=== PATIENT | male | born 1960 | race Two or more races ===

== ENCOUNTER 2023-01-03 23:31 | Emergency (ER) | payer OTHER ==
[~2023-01-03] VITALS: Ht 157.5 cm; Wt 58.1 kg
[2023-01-03] MEDS ORDERED: TAMS0.4C (23:38)
[2023-01-03] MEDS ORDERED: LIPITOR40 M1 (23:38)
[2023-01-03] MEDS ORDERED: CARAFATE1 GM (23:38)
[2023-01-03] MEDS ORDERED: TRAMADOL HCL E100 M1 (23:39)
[2023-01-04 02:19] LABS: PH,URINE 6.5 (5.0-8.0); URINE APPEARANCE Clear; URINE BILIRRUBIN Negative (NEGATIVE); URINE BLOOD Negative; URINE COLOR Yellow; URINE GLUCOSE Negative (NEGATIVE); URINE LEUKOCYTE Negative; URINE NITRATE Negative; URINE PROTEIN Negative (NEGATIVE); URINE UROBILINOGEN 0.2 E.U./dl
[2023-01-04 02:23] LABS: URINE BACTERIA 7.5 uL (0.0-1933); URINE RBC 2.1 uL (0.0-20.8)
[2023-01-04 02:28] LABS: URINE EPITHELIAL CELLS 0.9 uL (0.0-38.8); URINE WBC 1.2 uL (0.0-23.2)
[2023-01-04 02:28] LABS: HEMOGLOBIN 13.3 g/dL (13-16.00); MEAN CELL VOLUME 88.8 fL (80.0-100.00); MEAN CORPUSCULAR HGB CONC 34.9 g/dl (32.0-36.0); PLATELET COUNT 173 K/uL (150-450); RED BLOOD COUNT 4.27 M/uL (4.00-6.00); RED CELL DISTRIBUTION WIDTH 14.4 % (11.5-14.5)
[2023-01-04 02:40] LABS: CALCIUM 8.9 mg/dL (8.5-10.1); CREATININE SERUM 0.86 mg/dL (0.70-1.30); GFR 90.4; POTASSIUM 4.43 mEq/L (3.5-5.1)
[2023-01-04] MEDS ORDERED: KETO10TA2 PO (06:50)
[2023-01-04] MEDS ORDERED: CIPRO500 MG PO (06:50)
== END 2023-01-04 07:05 ==
LOC: ER 23:32
PROVIDERS: General Practice
DX: R10.9 Unspecified abdominal pain (principal); Z87.442 Personal history of urinary calculi; K57.30 Diverticulosis of large intestine without perforation or abscess without bleeding; N20.0 Calculus of kidney